=== PATIENT | female | born 1940 | race Two or more races ===

== ENCOUNTER 2017-09-01 07:15 | Inpatient (IN) | payer OTHER ==
[~2017-09-01] VITALS: Ht 157.5 cm; Wt 48.5 kg
[2017-09-01] MEDS ORDERED: NEURONTIN300 MG (10:59)
[2017-09-01] MEDS ORDERED: METFORMIN HYDRO25 GM (10:59)
[2017-09-07] MEDS ORDERED: DUI500 PO (08:31)
[2017-09-07] MEDS ORDERED: OXYC1TAB9 PO (08:31)
== END 2017-09-07 13:18 | disposition home or self-care (01) | DRG 483 ==
LOC: SURH 09-06 07:15 → O/R 09-06 07:18 → SURH 09-06 07:18
PROVIDERS: Orthopaedic Surgery Sports Medicine
PROC: 8E0XXY8 Suture Removal from Upper Extremity (ICD-10-PCS; 2017-09-06)
PROC: 0RRJ00Z Replacement of Right Shoulder Joint with Reverse Ball and Socket Synthetic Substitute, Open Approach (ICD-10-PCS; principal; 2017-09-06 09:30)
DX: M19.011 Primary osteoarthritis, right shoulder (principal); M75.111 Incomplete rotator cuff tear or rupture of right shoulder, not specified as traumatic

== ENCOUNTER 2019-03-15 09:17 | Emergency (ER) | payer OTHER ==
[~2019-03-15] VITALS: Ht 152.4 cm; Wt 36.3 kg
[~2019-03-15 09:17] MED LIST: DUI500 PO; METFORMIN HYDRO25 GM; NEURONTIN300 MG; OXYC1TAB9 PO
== END 2019-03-15 14:33 | disposition home or self-care (01) ==
LOC: ER 09:17
DX: J40 Bronchitis, not specified as acute or chronic (principal)

== ENCOUNTER 2024-06-06 12:22 | Inpatient (IN) | payer OTHER ==
[~2024-06-06] VITALS: Ht 157.5 cm; Wt 43.5 kg
--- NOTE | 2024-06-06 12:35 | NUR ---
PACIENTE ALERTA Y ORIENTADA X 3. REFIERE ALREDEDOR DE LAS 10 AM SINTIO QUE LA PROTESIS DEL HOMBRO DERECHO SE LE SALIO DE LUGAR.
[2024-06-06] MEDS ORDERED: RELAFEN DS1000 MG PO (12:40)
[2024-06-06] MEDS ORDERED: HORIZANT300 MG (12:40)
[2024-06-06] MEDS ORDERED: SYNTHROID100 MCG PO (12:41)
[2024-06-06] MEDS ORDERED: ACETAMINOPHEN WITH CODEINE 1 UDTAB TABLET PO ONE (13:15)
[2024-06-06] MEDS ORDERED: KETOROLAC TROMETHAMINE 30 MG VIAL IM ONE (13:15)
--- NOTE | 2024-06-06 13:29 | NUR ---
PACIENTE ALERTA Y ORIENTADA X3. SE EDUCA A PACIENTE SOBRE PROCESO DE ADMINISTRACION DE MEDICAMENTOS, REFIERE ENTENDER. SE EJECUTAN ORDENES BAJO MEDIDAS ASEPTICAS. PENDIENTE A PLACA YA NOTIFICADA.
[2024-06-06] MEDS ORDERED: MORPHINE SULFATE 2 MG/ML SYRINGE IV STA (16:44)
[2024-06-06 17:03] LABS: HEMATOCRIT 31.2 % (36.0-45.00); HEMOGLOBIN 9.7 g/dL (12.0-15.00); MEAN CELL VOLUME 76.5 fL (80.00-100.00); MEAN CORPUSCULAR HEMOGLOBIN 23.8 pg (27.00-32.0); MEAN CORPUSCULAR HGB CONC 31.1 g/dl (32.0-36.0); PLATELET COUNT 574 K/uL (150-450); RED BLOOD COUNT 4.08 M/uL (4.00-6.00); RED CELL DISTRIBUTION WIDTH 16.5 % (11.5-14.5)
[2024-06-06 17:22] LABS: PH,URINE 6.5 (5.0-8.0); URINE APPEARANCE Clear; URINE BILIRRUBIN Negative (NEGATIVE); URINE BLOOD Negative; URINE COLOR Yellow; URINE GLUCOSE Negative (NEGATIVE); URINE KETONE Negative (NEGATIVE); URINE LEUKOCYTE Negative; URINE NITRATE Negative; URINE PROTEIN Negative (NEGATIVE); URINE UROBILINOGEN 0.2 E.U./dl
[2024-06-06 17:26] LABS: URINE BACTERIA 10.9 uL (0.0-1933); URINE CAST 2.06 uL (0.0-1.40); URINE EPITHELIAL CELLS 14.7 uL (0.0-38.8); URINE RBC 4.7 uL (0.0-20.8)
[2024-06-06 17:33] LABS: INR 0.97; PARTIAL THROMBOPLASTIN TIME 21.9 SECONDS (22.0-34.0); PROTHROMBIN TIME 10.6 SECONDS (9.0-11.5)
[2024-06-06] MEDS ORDERED: MEPERIDINE HCL/PF 50 MG/ML VIAL IM PRN (19:30)
[2024-06-06] MEDS ORDERED: PROMETHAZINE HCL 50 MG/ML AMPUL IM PRN (19:30)
[2024-06-06] MEDS ORDERED: CEFAZOLIN SODIUM 1,000 MG VIAL IV ONE (19:30)
[2024-06-06] MEDS ORDERED: 0.9 % SODIUM CHLORIDE 1,000 ML IV SCH (19:30)
[2024-06-06] MEDS ORDERED: FUROsemide 20 MG/2 ML VIAL IV SCH (20:00)
[2024-06-06 20:12] LABS: BILIRUBIN TOTAL 0.48 mg/dL (0.3-1.2); CALCIUM 8.7 mg/dL (8.5-10.1); CREATININE SERUM 1.11 mg/dL (0.55-1.02); GFR 46.72; GLOBULINA 3.9 G/DL (2.4-3.5); POTASSIUM 4.07 mEq/L (3.5-5.1); TOTAL PROTEIN 6.9 gm/dL (6.4-8.2)
[2024-06-06 20:27] LABS: RH POSITIVE
[2024-06-06] MEDS ORDERED: DEXTROSE 50 % IN WATER 0.5 G/ML DISP.SYRIN IV PRN (20:30)
[2024-06-06] MEDS ORDERED: INSULIN LISPRO 1,000 UNIT/10 ML UNITS SUBCUTANEO PRN (20:30)
[2024-06-07] VITALS: BP 121/70; O2SAT 98
[2024-06-07 03:20] VITALS: BP 184/86; O2SAT 99
[2024-06-07] MEDS ORDERED: LEVOTHYROXINE SODIUM 100 MCG TABLET PO SCH (06:00)
[2024-06-07] MEDS ORDERED: ENALAPRILAT DIHYDRATE 1.25 MG/ML VIAL IV STA (07:40)
[2024-06-07] MEDS ORDERED: ENALAPRILAT DIHYDRATE 1.25 MG/ML VIAL IV PRN (07:45)
[2024-06-07 08:00] VITALS: BP 138/73; O2SAT 95
[2024-06-07] MEDS ORDERED: FAMOTIDINE/PF 20 MG/2 ML VIAL IV SCH (09:00)
[2024-06-07 16:00] VITALS: BP 100/64; O2SAT 95
[2024-06-07] MEDS ORDERED: SODIUM CHLORIDE 0.45 % 1,000 ML IV SCH (19:00)
[2024-06-07] MEDS ORDERED: MORPHINE SULFATE 4 MG/ML VIAL IV ONE (19:00)
[2024-06-07] MEDS ORDERED: MORPHINE SULFATE 4 MG/ML VIAL IV PRN (19:00)
[2024-06-08 00:30] VITALS: BP 165/72; O2SAT 95
[2024-06-08 06:48] LABS: HEMATOCRIT 27.7 % (36.0-45.00); HEMOGLOBIN 9.1 g/dL (12.0-15.00); MEAN CELL VOLUME 74.7 fL (80.00-100.00); MEAN CORPUSCULAR HEMOGLOBIN 24.4 pg (27.00-32.0); MEAN CORPUSCULAR HGB CONC 32.6 g/dl (32.0-36.0); PLATELET COUNT 481 K/uL (150-450); RED BLOOD COUNT 3.71 M/uL (4.00-6.00); RED CELL DISTRIBUTION WIDTH 16.3 % (11.5-14.5)
[2024-06-08] MEDS ORDERED: TRAM1TAB98 PO (07:31)
[2024-06-08] MEDS ORDERED: INTEGRA PLUS C1 EACH PO (07:32)
[2024-06-08 07:37] LABS: ALBUMIN 2.3 gm/dL (3.4-5.0); BILIRUBIN TOTAL 0.36 mg/dL (0.3-1.2); CREATININE SERUM 0.8 mg/dL (0.55-1.02); GFR 68.17; GLOBULINA 3.1 G/DL (2.4-3.5); POTASSIUM 3.92 mEq/L (3.5-5.1); TOTAL PROTEIN 5.4 gm/dL (6.4-8.2)
[2024-06-08 08:00] VITALS: BP 138/60; O2SAT 96
== END 2024-06-08 13:57 | disposition home or self-care (01) | DRG 511 ==
LOC: ER 12:24 → SURH 16:06 → SEC-K 16:06 → SURH 23:19
PROVIDERS: Emergency Medicine; Internal Medicine; ADMIT Orthopaedic Surgery Sports Medicine; ATTEND Orthopaedic Surgery Sports Medicine
PROC: 0RSJ0ZZ Reposition Right Shoulder Joint, Open Approach (ICD-10-PCS; principal; 2024-06-07 19:15)
DX: S43.004A Unspecified dislocation of right shoulder joint, initial encounter (principal); T84.028A Dislocation of other internal joint prosthesis, initial encounter